=== PATIENT | female | born 1935 | race Caucasian/White ===

== ENCOUNTER 2020-10-01 12:37 | Emergency (ER) | payer MEDICARE, BC ==
[2020-10-01] MEDS ORDERED: Acetaminophen/HYDROcodone 325-5 MG Tab PO ONE (16:56)
--- NOTE | 2020-10-01 17:40 | EDM.PDOC ---
ED HPI GENERAL MEDICAL PROBLEM - General Chief Complaint: General Stated Complaint: POSSIBLE BROKEN RIBS LT SIDE Time Seen by Provider: 10/01/20 16:40 Source of Information: Reports: Patient, Family History Limitations: Reports: No Limitations - History of Present Illness INITIAL COMMENTS - FREE TEXT/NARRATIVE: 85-year-old female fell last night striking her left flank and left upper hip area on the cement hearth in front of the fireplace. Today she is having significant discomfort with movement and weightbearing so came in to be seen. She has an abrasion on the left flank and lower back but is ambulating with discomfort but no significant pain. Some pain with breathing. No shortness of breath, denies abdominal pain, no nausea or vomiting. Onset: Sudden Duration: Hour(s): (8 hours ago) Location: Reports: Chest, Back Quality: Reports: Sharp, Stabbing Improves with: Reports: None (Took some ibuprofen but is still very uncomfortable) Worsens with: Reports: Breathing, Movement Associated Symptoms: Reports: Chest Pain (Left lateral chest wall pain). Denies: Loss of Appetite, Shortness of Breath Left Flank Pain Score (Numeric/FACES): 8 - Related Data Allergies Allergy/AdvReac Type Severity Reaction Status Date / Time No Known Allergies Allergy Verified 10/01/20 15:58 Home Meds: Home Meds NK [No Known Home Meds] 10/01/20 [History] Past Medical History HEENT History: Reports: Cataract, Hard of Hearing, Macular Degeneration, Other (See Below) Other HEENT History: seasonal allergies [employer] History: Reports: Musculoskeletal History: Reports: Fracture - Past Surgical History HEENT Surgical History: Reports: Cataract Surgery Oncologic Surgical History: Reports: Other (See Below) Other Oncologic Surgeries/Procedures: biopsy of lymph nodes, no cancer. Social & Family History - Tobacco Use Tobacco Use Status *Q: Never Tobacco User - Caffeine Use Caffeine Use: Reports: Coffee - Alcohol Use Days Per Week of Alcohol Use: 7 Number of Drinks Per Day: 2 Total Drinks Per Week: 14 - Recreational Drug Use Recreational Drug Use: No ED ROS GENERAL - Review of Systems Review Of Systems: See Below Constitutional: Denies: Fever, Chills HEENT: Reports: Other (Significant hearing loss which is chronic) Respiratory: Reports: Pleuritic Chest Pain (Left lateral chest). Denies: Shortness of Breath, Cough Cardiovascular: Denies: Palpitations GI/Abdominal: Denies: Abdominal Pain, Nausea, Vomiting Skin: Reports: Bruising, Other (Patient has bruising and abrasion on the left flank) Neurological: Reports: No Symptoms Psychiatric: Reports: No Symptoms ED EXAM, GENERAL - Physical Exam Exam: See Below Exam Limited By: No Limitations General Appearance: Alert, No Apparent Distress (Looks uncomfortable but not distressed) Head: Atraumatic Neck: Supple, Non-Tender Respiratory/Chest: No Respiratory Distress, Decreased Breath Sounds (Breath sounds are heard bilaterally but are slightly decreased on the left compared to the right), Rales (A few scattered rales are heard in the left base), Other (Patient has exquisite tenderness to palpation just above the iliac crest on the left side along the lower rib cage and chest wall, no crepitus) Cardiovascular: Regular Rate, Rhythm. No: Tachycardia GI/Abdominal: Soft, Non-Tender Extremities: Normal Inspection, Other (No trauma to the extremities, patient can stand and ambulate without hip discomfort). No: Pedal Edema Neurological: Alert, Oriented. No: Confused Psychiatric: Normal Affect, Normal Mood Skin Exam: Warm, Dry, Other (Patient does have a superficial abrasion with some bruising along the left flank and just above the left iliac crest) Course - Vital Signs Last Recorded V/S: Last Vital Signs Temp 96.7 F L 10/01/20 15:57 Pulse 88 10/01/20 15:57 Resp 16 10/01/20 15:57 BP 183/99 H 10/01/20 15:57 Pulse Ox 96 10/01/20 15:57 - Orders/Labs/Meds Meds: Medications Discontinued Medications Generic Name Dose Route Start Last Admin Trade Name Crista PRN Reason Stop Dose Admin Hydrocodone Bitart/Acetaminophen 1 tab 10/01/20 16:56 10/01/20 17:12 Acetaminophen/Hydrocodone 325-5 Mg Tab PO 10/01/20 16:57 1 tab ONETIME ONE Administration - Re-Assessments/Exams Free Text/Narrative Re-Assessment/Exam: 10/01/20 17:[address] scan of the chest abdomen and pelvis was obtained without contrast. It does reveal a small pneumothorax on the left side, and rib fractures of 10 through 12. A possible new lumbar compression fracture is present as well. These were discussed with the patient's daughter. Patient was discharged with some Percocet to take 1 every 3-4 hours for pain control along with ibuprofen, and concentrate on taking deep breaths several times daily. If at anytime she becomes more short of breath or develops other concerns she should be rechecked. A copy of the CT scan was given to the patient, she should follow-up in the next 5 to 10 days to reassess the pneumothorax and her progress. Patient and daughter are in agreement with the plan. 10/02/20 11:44 Patient's daughter was contacted today and she said her mother is doing much better with the pain medication helping, she is increasing her activity and is not complaining of any shortness of breath. She is planning on rechecking with her primary provider with the CT scan disc when she returns to [place]. 10/02/20 11:46 Departure - Departure Time of Disposition: 17:52 Disposition: Home, Self-Care 01 Clinical Impression: Pneumothorax on left Ribs, multiple fractures Qualifiers: Encounter type: initial encounter Fracture type: closed Laterality: left Qualified Code(s): S22.42XA - Multiple fractures of ribs, left side, initial encounter for closed fracture - Discharge Information Instructions: Rib Fracture, [id number] Referrals: PCP,None [Primary Care Provider] - Forms: ED Department Discharge Care Plan Goals: Ice to sore areas for the next 2 days will be helpful, a regular dose of ibuprofen and add stronger pain medications as prescribed if needed. Recheck anytime if worsening such as difficulty breathing or uncontrolled pain, increase activity as tolerated, and consider rechecking in 5 to 10 days if not improving satisfactorily. If rechecking, take copies of x-ray with you to your recheck. Sepsis Event Note (ED) - Evaluation Sepsis Screening Result: No Definite Risk
--- NOTE | 2020-10-01 18:36 | CRLCT ---
Indication: Fall, left flank injury Technique: Volumetric multidetector CT images of the chest, abdomen, and pelvis were obtained without the administration of intravenous contrast. Comparison: None available. FINDINGS: CHEST The thoracic inlet is unremarkable. The thyroid gland is within normal limits. The thoracic aorta demonstrates moderate ectasia of the ascending thoracic aorta measuring up to 4.8 by 4.4 centimeters in greatest dimensions. There is no significant dilatation of the pulmonary arteries. There is no mediastinal, hilar, or axillary adenopathy. There is a left-sided pneumothorax without evidence of mediastinal shift. There is minimal dependent basilar atelectasis and parenchymal scarring appreciated. There is mild to moderate centrilobular emphysematous changes. There is demonstration of a pulmonary mass adjacent to the left hilum measuring 8.7 millimeters in greatest dimension. There is no pleural effusion. There is mild apical pleural thickening. Additional subcentimeter pulmonary nodules are seen within the left hemithorax. There are displaced fractures of the posterior and inferior aspects of the left 12th, 11th, 10th ribs. The right ribs are grossly intact. The thoracic vertebral body heights demonstrate age indeterminate endplate deformities of the superior T4 level. Otherwise the thoracic vertebral body heights are grossly preserved without evidence of significant spondylolisthesis. ABDOMEN AND PELVIS The liver is normal in attenuation and size. The portal vein is patent. The spleen is normal in attenuation and size. The gallbladder is unremarkable without radiopaque calculus. There is no intrahepatic or common ductal dilatation. The stomach and duodenum are grossly unremarkable. The pancreas is normal in enhancement without significant atrophy. The adrenal glands are unremarkable without evidence of adenoma. There are simple appearing cystic changes of the bilateral kidneys without evidence of obstructive uropathy. There is a mild moderate amount of intracolonic stool. There is minimal distal colonic diverticulosis. The appendix is unremarkable without significant inflammatory change. The abdominal aorta is non aneurysmal with moderate scattered atherosclerotic calcification.. The remaining solid pelvic viscera are otherwise grossly unremarkable. There is no pathologically enlarged epigastric, mesenteric, retroperitoneal, or pelvic sidewall lymph node. The anterior abdominal wall is grossly intact without significant hernias. There is no free air or free fluid. The visualized osseous structures are grossly intact without evidence of displaced fracture, lytic or blastic lesion. There is compression deformity of the L2 superior endplate without evidence of large, displaced fracture. The remaining lumbar vertebral body heights are grossly maintained. Impression: 1. Demonstration of comminuted fractures of the left 10th through 12th ribs with development of a left-sided small pneumothorax without evidence of tension. 2. Somewhat age indeterminate compression deformity of the superior T4 endplate. Additional likely acute compression deformity of the L2 vertebral body is appreciated. 3. Otherwise there is no additional acute abnormality of the chest, abdomen or pelvis. Please note that all CT scans at this facility use dose modulation, iterative reconstruction, and/or weight-based dosing when appropriate to reduce radiation dose to as low as reasonably achievable. Dictated by Thierry Rashid MD @ 10/01/2020 6:35:[address] Thierry Rashid @ Oct 01 2020 6:35PM
== END 2020-10-01 17:52 | disposition home or self-care (01) ==
LOC: JP.ED 12:37
DX: S22.42XA Multiple fractures of ribs, left side, initial encounter for closed fracture (principal); S30.811A Abrasion of abdominal wall, initial encounter; J93.9 Pneumothorax, unspecified; W18.09XA Striking against other object with subsequent fall, initial encounter
CPT/HCPCS: 71250; 74176; 99284; A9270